=== PATIENT | female | born 1980 | race Hispanic/Latino ===

== ENCOUNTER 2020-04-07 07:23 | Emergency (ER) | payer MEDICAID ==
[~2020-04-07 07:23] MED LIST: CEPH-578 PO; FERR325C PO; IBUP-2077 PO
[2020-04-07] MEDS ORDERED: ACETAMINOPHEN EXTRA STRENGTH 500 MG TABLET ONE (07:42)
[2020-04-07] MEDS ORDERED: OCTYL 2-CYANOACRYLATE 1 EACH TP ONE (07:42)
[2020-04-07] MEDS ORDERED: TETANUS/DIPHTHERIA TOXOID [ADULT] 0.5 ML VIAL IM ONE (07:47)
[2020-04-07] MEDS ORDERED: CEPHALEXIN 500 MG CAPSULE ONE (08:38)
== END 2020-04-07 09:07 | disposition home or self-care (01) ==
LOC: EDH 07:23
DX: S61.212A Laceration without foreign body of right middle finger without damage to nail, initial encounter (principal); S60.021A Contusion of right index finger without damage to nail, initial encounter; Z90.49 Acquired absence of other specified parts of digestive tract; Z98.51 Tubal ligation status; Z79.899 Other long term (current) drug therapy; Z90.710 Acquired absence of both cervix and uterus; W23.0XXA Caught, crushed, jammed, or pinched between moving objects, initial encounter; Y93.89 Activity, other specified; Y92.810 Car as the place of occurrence of the external cause; Y99.8 Other external cause status
CPT/HCPCS: 12001; 73140; 90471; 90714